=== PATIENT | female | born 1945 | race Caucasian/White ===

== ENCOUNTER → 2016-07-05 | Outpatient (CLI) | payer MEDICARE ==
--- NOTE | 2016-07-05 13:30 | RAD ---
DATE: 07/05/2016 EXAM: DIGITAL SCREEN BILAT W/CAD HISTORY: Routine screening COMPARISON: 07/03/2015, 06/25/2013, 06/08/2010 This study was interpreted with the benefit of Computerized Aided Detection (CAD). FINDINGS: There are scattered fibroglandular densities in the breasts. A small opacity present laterally in the right breast in the craniocaudad projection has been present on multiple previous studies dating back to 2010. No new or enlarging breast densities are seen. Benign type calcification is present. No suspicious microcalcifications have developed. IMPRESSION: Stable mammograms without evidence of malignancy. BI-RADS CATEGORY: 2 BENIGN FINDING(S) RECOMMENDED FOLLOW-UP: 12M 12 MONTH FOLLOW-UP PQRS compliance statement: Patient information was entered into a reminder system with a target due date for the next mammogram. Mammography is a sensitive method for finding small breast cancers, but it does not detect them all and is not a substitute for careful clinical examination. A negative mammogram does not negate a clinically suspicious finding and should not result in delay in biopsying a clinically suspicious abnormality. "Our facility is accredited by the [employer] Mammography Program."
== END | disposition home or self-care (01) ==
LOC: MAMMO 07:55
PROVIDERS: ATTEND Internal Medicine
DX: Z12.31 Encounter for screening mammogram for malignant neoplasm of breast (principal)
CPT/HCPCS: G0202; 77067

== ENCOUNTER 2016-07-10 12:41 | Inpatient (IN) | payer MEDICARE ==
[2016-07-10] VITALS (9 sets, daily range): BP systolic 103–126; BP diastolic 57–74
[~2016-07-10] VITALS: Ht 167.6 cm; Wt 79.1 kg
[2016-07-10 13:02] LABS: BASO # 0.1 x10^3/uL (0.0-0.2); BASO % 1 % (0-3); EOS % 10 % (0-3); HEMOGLOBIN 14.9 g/dL (12.0-15.5); LYMPH # 2.3 x10^3/uL (1.0-4.8); LYMPH % 30 % (24-48); MEAN CORPUSCULAR HEMOGLOBIN 30 pg (25-35); MEAN CORPUSCULAR HGB CONC 32 g/dL (31-37); MEAN CORPUSCULAR VOLUME 92 fL (79-100); MONO % 13 % (0-9); NEUT % 46 % (31-73); PLATELET COUNT 172 x10^3/uL (140-400); RED BLOOD COUNT 4.98 x10^6/uL (3.50-5.40); RED CELL DISTRIBUTION WIDTH 13.8 % (11.5-14.5); WHITE BLOOD COUNT 7.7 x10^3/uL (4.0-11.0)
--- NOTE | 2016-07-10 13:10 | PHYS DOC ---
Past Medical History Past Medical History: Hypothyroid Past Surgical History: No Surgical History Alcohol Use: None Drug Use: None Adult General Chief Complaint Chief Complaint: RAPID HEART RATE HPI HPI 70-year-old female presenting to the emergency department today with palpitations that started around 7:00 this morning. She has a history of hypothyroidism. She denies any chest pain or shortness of breath. Location chest. Duration intermittent. No alleviating factors present. She reports a remote history of more than 5 years ago however otherwise has not felt any symptoms over the past week. She denies a history of A. fib. Review of systems is negative for chest pain shortness of breath abdominal pain nausea vomiting fevers or chills. All other review of systems is negative unless otherwise noted in history of present illness. Review of Systems Review of Systems SEE ABOVE. Current Medications Current Medications Allergies Allergies Allergies Coded Allergies Type Severity Reaction Last Updated Verified neomycin Allergy Unknown Rash 07/10/16 Yes Physical Exam Physical Exam Constitutional: Well developed, well nourished, no acute distress, non-toxic appearance. HENT: Normocephalic, atraumatic, bilateral external ears normal, oropharynx moist, no oral exudates, nose normal. Eyes: PERRLA, EOMI, conjunctiva normal, no discharge. [] Neck: Normal range of motion, no tenderness, supple, no stridor. Cardiovascular: Tachycardic rate with an irregular rhythm. No murmur. Lungs & Thorax: Bilateral breath sounds clear to auscultation [] Abdomen: Bowel sounds normal, soft, no tenderness, no masses, no pulsatile masses. Skin: Warm, dry, no erythema, no rash. [] Back: No tenderness, no CVA tenderness. Extremities: No tenderness, no cyanosis, no clubbing, ROM intact, no edema. [] Neurologic: Alert and oriented X 3, normal motor function, normal sensory function, no focal deficits noted. Psychologic: Affect normal, judgement normal, mood normal. Current Patient Data Vital Signs Vital Signs Date Time Temp Pulse Resp B/P Pulse Ox O2 Delivery O2 Flow Rate FiO2 07/10/16 13:06 120 20 173/103 99 Room Air 07/10/16 12:54 97.7 97.7 Lab Values Laboratory Tests Test 07/10/16 12:55 White Blood Count 7.7x10^3/uL (4.0-11.0) Red Blood Count 4.98x10^6/uL (3.50-5.40) Hemoglobin 14.9g/dL (12.0-15.5) Hematocrit 46.0% (36.0-47.0) Mean Corpuscular Volume 92fL (79-100) Mean Corpuscular Hemoglobin 30pg (25-35) Mean Corpuscular Hemoglobin Concent 32g/dL (31-37) Red Cell Distribution Width 13.8% (11.5-14.5) Platelet Count 172x10^3/uL (140-400) Neutrophils (%) (Auto) 46% (31-73) Lymphocytes (%) (Auto) 30% (24-48) Monocytes (%) (Auto) 13% (0-9) H Eosinophils (%) (Auto) 10% (0-3) H Basophils (%) (Auto) 1% (0-3) Neutrophils # (Auto) 3.5x10^3uL (1.8-7.7) Lymphocytes # (Auto) 2.3x10^3/uL (1.0-4.8) Monocytes # (Auto) 1.0x10^3/uL (0.0-1.1) Eosinophils # (Auto) 0.8x10^3/uL (0.0-0.7) H Basophils # (Auto) 0.1x10^3/uL (0.0-0.2) Sodium Level 141mmol/L (136-145) Potassium Level 3.7mmol/L (3.5-5.1) Chloride Level 103mmol/L (98-107) Carbon Dioxide Level 31mmol/L (21-32) Anion Gap 7 (6-14) Blood Urea Nitrogen 17mg/dL (7-20) Creatinine 1.0mg/dL (0.6-1.0) Estimated GFR (Cockcroft-Gault) 54.7 Glucose Level 117mg/dL (70-99) H Calcium Level 9.1mg/dL (8.5-10.1) Total Bilirubin 0.3mg/dL (0.2-1.0) Direct Bilirubin 0.1mg/dL (0.0-0.2) Aspartate Amino Transferase (AST) 24U/L (15-37) Alanine Aminotransferase (ALT) 30U/L (14-59) Alkaline Phosphatase 80U/L (46-116) Troponin I Quantitative < 0.017ng/mL (0.000-0.055) DC-Rjp-N-Type Natriuretic Peptide 311pg/mL (0-124) H Total Protein 8.3g/dL (6.4-8.2) H Albumin 3.4g/dL (3.4-5.0) Lipase 97U/L (73-393) Thyroid Stimulating Hormone (TSH) 1.633uIU/mL (0.358-3.74) Laboratory Tests 07/10/16 12:55 Laboratory Tests 07/10/16 12:55 EKG EKG [] Radiology/Procedures Radiology/Procedures Chest x-ray reviewed by myself shows no obvious infiltrate or pneumothorax present. No obvious acute cardiopulmonary process present.[] Course & Med Decision Making Course & Med Decision Making Pertinent Labs and Imaging studies reviewed. (See chart for details) [] 70-year-old female presenting to the emergency department today with rotations. Initial EKG shows A. fib with RVR. Initial triage vital signs shows a pulse in the 160s. Blood pressure 170/100 approximately. The patient was given IV diltiazem bolus and drip. Otherwise unremarkable exam. Blood work obtained. On reevaluation the patient's heart rate had improved. She was admitted to our cardiovascular care unit for further evaluation workup and care. Cardiology consultation placed. Dragon Disclaimer Dragon Disclaimer This electronic medical record was generated, in whole or in part, using a voice recognition dictation system. Departure Departure Impression: Primary Impression: Atrial fibrillation with RVR Disposition: ADMITTED INPATIENT Admitting Physician: Yousuf Freeman Condition: IMPROVED Referrals: SERENA DENTON Jr, MD (PCP) Critical Care Time Critical care time was 40 minutes exclusive of procedures. Time was spent evaluating pt, ordering and reviewing labs and chest xray, reevaluating, discussing with the admitting provider and documenting. DUYEN HERNANDEZ MD Jul 10, 2016 13:10
[2016-07-10] MEDS ORDERED: DILTIAZEM 125 MG in IV DEXTROSE 5% 100 ML IV PRN (13:15)
[2016-07-10] MEDS ORDERED: ONDANSETRON PF 4 MG/2 ML VIAL. IV PRN ×2 (13:15→15:15)
[2016-07-10] MEDS ORDERED: DILTIAZEM IV PUSH 25 MG/5 ML VIAL. IVP ONE ×2 (13:15→14:00)
[2016-07-10] MEDS ORDERED: MORPHINE SULFATE 2 MG/ML DISP.SYRIN. IV PRN (13:15)
--- NOTE | 2016-07-10 13:19 | RAD ---
Indication chest pain. A single view of the chest was obtained. No prior imaging of the chest is available. The heart and pulmonary vessels appear normal. The lungs are clear. There is no pleural fluid or pneumothorax. Bony structures appear grossly intact. IMPRESSION: No acute or focal process is seen in the chest
[2016-07-10 13:22] LABS: CALCIUM 9.1 mg/dL (8.5-10.1); GFR 54.7; POTASSIUM 3.7 mmol/L (3.5-5.1)
--- NOTE | 2016-07-10 13:22 | EKG ---
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
[2016-07-10 13:27] LABS: ALBUMIN 3.4 g/dL (3.4-5.0); DIRECT BILIRUBIN 0.1 mg/dL (0.0-0.2); TOTAL BILIRUBIN 0.3 mg/dL (0.2-1.0); TOTAL PROTEIN 8.3 g/dL (6.4-8.2)
--- NOTE | 2016-07-10 13:40 | ACF ---
Admission Forms Criteria ATRIAL FIBRILLATION Clinical Indications for Admission to Inpatient Care (Place 'X' for any and all applicable criteria): Admission indicated for ANY ONE of the following(1)(2)(3)(4)(5) : [ ]I. Myocardial ischemia [ ]II. Dyspnea or hypoxemia [ ]III. Hemodynamic instability [ ]IV. Heart failure (e.g., pulmonary edema) (7) [ ]V. New-onset (less than 48 hours) atrial fibrillation with high risk for causing complications secondary to comorbidities (eg, symptomatic heart failure ) [ ]. Altered mental status [ ]VII. Syncope [ ]VIII. Patient has implantable cardioverter defibrillator that has fired more than once within past 24hr or needs immediate adjustment of settings that cannot be done other than in inpatient setting. (8) [ ]IX. Suspected accessory pathway (e.g., Megyh-Cwvsefyst-Mnpxj syndrome) on ECG [ ]X. Recent systemic thromboembolism (eg, stroke) [ ]XI. Medication toxicity (e.g., digitalis) causing arrhythmia(9) [ ]XII. Underlying medical condition that necessitates inpatient care (e.g., thyrotoxicosis, pneumonia) (10) [ ]XIII. Continuous ECG monitoring is required for condition causing arrhythmia (e.g., severe hyperkalemia, hypokalemia, acid-base disturbance).(11)(12)(13) [ ]XIV. Initiation of antiarrhythmic drug therapy is needed in patient at high risk of adverse effects as indicated by ANY ONE of the following: [ ]a) Significant structural heart disease (e.g., reduced ejection fraction, congenital heart disease, valvular heart disease) [ ]b) Prolonged QT interval [ ]c) Underlying sinus node or atrioventricular conduction disturbances [ ]d) Need for treatment with antiarrhythmic drugs that have significant proarrhythmic potential (e.g., dofetilide, sotalol, procainamide) [ ]e) Patient whose sinus rhythm has never been observed on ECG [ ]XV. Intolerable symptoms despite optimal outpatient treatment [ ]XVI. Elective or urgent cardioversion that cannot be performed on outpatient basis or during observation care. [A] (Use also Atrial Fibrillation: Observation Care ) as appropriate.(14) [ ]XVII.Contraindications and/or Inappropriate clinical situations for Observational Care in patients with Atrial Fibrillation, when ANY ONE of the following is required: [ ]a) Patient with High risk of cardiac embolism (e.g, patients with previous cardiac embolism, LVEF < 40%, age >75 and patients with prosthetic valve) 18 [ ]b) Patient with Moderate risk including DM patient, CAD and patient aged 65-75 18 [ ]c) Patient with any change in cardiac biomarker especially troponin should be managed as high risk in an inpatient setting 19 [ ]d) Physician judgement irrespective of ECG and other diagnostic findings 20 [X]XVIII.General contraindications and/or Inappropriate clinical situations for Observational Care in patients with Atrial Fibrillation, when ANY ONE of the following is required: [X]a) Prediction of prolongation of LOS based on ANY ONE of the following may be considered as a contraindication for observational care 2, 3, 4, 5, 6, 7, 8, 9, 10, 11 [X]i) Age > 65 yrs. [ ]ii) Patient arriving by ambulance [ ]iii) Patient with high acuity [X]iv) Patient requiring vital sign monitoring [ ]v) Patient on IV medication [ ]b) Systolic blood pressures 180mmHg 3,12 [ ]c) Patient with altered mental status including delirium and other alteration of consciousness3 [ ]d) Patient whose discharge disposition will be to a half-way home or rehabilitation home should not be managed in Emergency Department Observation Unit. CMS rule requires 3 days hospital stay before such placement.3,13 [ ]e) Patient with failure to thrive due to broad array of etiologies 3,16,17 [ ]f) Inability to ambulate 3,14 Extended stay beyond goal length of stay may be needed for (1)(25)(26): [ ]a) Unstable comorbidities [ ]b) Persistently uncontrolled atrial fibrillation or other arrhythmias [ ]c) Acute thromboembolic event (e.g., stroke, limb ischemia) [ ]d) Need for inpatient attainment of full anticoagulation The original [employer] content created by [employer] has been revised. The portions of the content which have been revised are identified through the use of italic text or in bold, and [facility] has neither reviewed nor approved the modified material. All other unmodified content is copyright [employer]. Please see references footnoted in the original [employer] edition 2016 Admission Criteria Met?: Yes DOMINIC POWELL Jul 10, 2016 13:40
[2016-07-10] MEDS ORDERED: LEVO100T5 PO (13:53)
[2016-07-10] MEDS ORDERED: ASPI-482 PO (13:53)
--- NOTE | 2016-07-10 15:14 | PDOC1 ---
History and Physical Date of Admission Date of Admission 07/10/16 Identification/Chief Complaint Chief Complaint palpittation Problems: Source Source: Chart review, Patient History of Present Illness History of Present Illness HPI HPI 70-year-old female with hypothyroidism, came to the emergency department today with for palpitation today. Pt has had similar palpitation in the past , but never told her PCP or seen a card. Today 7am, she started to have palpitation, constant, cannot tell if it is irregular or now, with mild dizziness, no sob , or chest pain. She was found rapid afib in ER, hr 170s, responded well to cardizem, now on cardizme drip at 10, still HR 110-140s. likes drink coffee. Past Medical History Past Medical History hypothyroidism Past Surgical History Past Surgical History: No pertinent history Social History Smoke: No ALCOHOL: none Drugs: None Current Problem List Problem List Problems Medical Problems: (1) Atrial fibrillation with RVR Status: Acute (2) Atrial fibrillation with RVR Status: Acute (3) Respiratory failure Status: Acute Current Medications Current Medications Current Medications Medications (Trade) Dose Ordered Sig/Cornelio Start Time Stop Time Status Last Admin Dose Admin Diltiazem HCl (Cardizem) 20 mg 1X ONCE 07/10/16 14:00 07/10/16 14:01 DC 07/10/16 13:51 20 MG Diltiazem HCl/ Dextrose (Cardizem) 125 ml @ 0 mls/hr CONT PRN 07/10/16 13:15 07/10/16 13:17 5 MLS/HR Morphine Sulfate 2 mg PRN Q2HR PRN 07/10/16 13:15 07/11/16 13:14 Ondansetron HCl (Zofran) 4 mg PRN Q8HRS PRN 07/10/16 13:15 07/11/16 13:14 Allergies Allergies Allergies Coded Allergies Type Severity Reaction Last Updated Verified neomycin Allergy Unknown Rash 07/10/16 Yes ROS Review of System CONSTITUTIONAL: No fever or chills EYES: No recent changes SKIN: No rash or itching CARDIOVASCULAR: No chest pain, syncope, palpitations, or edema RESPIRATORY: No SOB or cough GASTROINTESTINAL: No nausea, vomiting or abdominal pain NEUROLOGICAL: No headaches or weakness ENDOCRINE: No cold or heat intolerance GENITOURINARY: No urgency or frequency of urination MUSCULOSKELETAL: No back pain or joint pain LYMPHATICS: No enlarged lymph nodes PSYCHIATRIC: No anxiety or depression Physical Exam Physical Exam GEN.: No apparent distress. Alert and oriented. HEENT: Head is normocephalic, atraumatic NECK: Supple. LUNGS: Clear to auscultation. HEART: rapid irregular HR. no murmurs ABDOMEN: Soft, nontender. Positive bowel sounds. EXTREMITIES: Without any cyanosis. NEUROLOGIC: Normal speech, normal tone PSYCHIATRIC: Normal affect, normal mood. SKIN: No ulcerations Vitals Vitals Vital Signs Date Time Temp Pulse Resp B/P Pulse Ox O2 Delivery O2 Flow Rate FiO2 07/10/16 13:58 100 18 117/63 99 Room Air 07/10/16 12:54 97.7 97.7 Labs Labs Laboratory Tests Test 07/10/16 12:55 White Blood Count 7.7x10^3/uL (4.0-11.0) Red Blood Count 4.98x10^6/uL (3.50-5.40) Hemoglobin 14.9g/dL (12.0-15.5) Hematocrit 46.0% (36.0-47.0) Mean Corpuscular Volume 92fL (79-100) Mean Corpuscular Hemoglobin 30pg (25-35) Mean Corpuscular Hemoglobin Concent 32g/dL (31-37) Red Cell Distribution Width 13.8% (11.5-14.5) Platelet Count 172x10^3/uL (140-400) Neutrophils (%) (Auto) 46% (31-73) Lymphocytes (%) (Auto) 30% (24-48) Monocytes (%) (Auto) 13% (0-9) Eosinophils (%) (Auto) 10% (0-3) Basophils (%) (Auto) 1% (0-3) Neutrophils # (Auto) 3.5x10^3uL (1.8-7.7) Lymphocytes # (Auto) 2.3x10^3/uL (1.0-4.8) Monocytes # (Auto) 1.0x10^3/uL (0.0-1.1) Eosinophils # (Auto) 0.8x10^3/uL (0.0-0.7) Basophils # (Auto) 0.1x10^3/uL (0.0-0.2) Sodium Level 141mmol/L (136-145) Potassium Level 3.7mmol/L (3.5-5.1) Chloride Level 103mmol/L (98-107) Carbon Dioxide Level 31mmol/L (21-32) Anion Gap 7 (6-14) Blood Urea Nitrogen 17mg/dL (7-20) Creatinine 1.0mg/dL (0.6-1.0) Estimated GFR (Cockcroft-Gault) 54.7 Glucose Level 117mg/dL (70-99) Calcium Level 9.1mg/dL (8.5-10.1) Total Bilirubin 0.3mg/dL (0.2-1.0) Direct Bilirubin 0.1mg/dL (0.0-0.2) Aspartate Amino Transf (AST/SGOT) 24U/L (15-37) Alanine Aminotransferase (ALT/SGPT) 30U/L (14-59) Alkaline Phosphatase 80U/L (46-116) Troponin I Quantitative < 0.017ng/mL (0.000-0.055) OW-Rna-N-Type Natriuretic Peptide 311pg/mL (0-124) Total Protein 8.3g/dL (6.4-8.2) Albumin 3.4g/dL (3.4-5.0) Lipase 97U/L (73-393) Thyroid Stimulating Hormone (TSH) 1.633uIU/mL (0.358-3.74) Laboratory Tests Test 07/10/16 12:55 White Blood Count 7.7x10^3/uL (4.0-11.0) Red Blood Count 4.98x10^6/uL (3.50-5.40) Hemoglobin 14.9g/dL (12.0-15.5) Hematocrit 46.0% (36.0-47.0) Mean Corpuscular Volume 92fL (79-100) Mean Corpuscular Hemoglobin 30pg (25-35) Mean Corpuscular Hemoglobin Concent 32g/dL (31-37) Red Cell Distribution Width 13.8% (11.5-14.5) Platelet Count 172x10^3/uL (140-400) Neutrophils (%) (Auto) 46% (31-73) Lymphocytes (%) (Auto) 30% (24-48) Monocytes (%) (Auto) 13% (0-9) Eosinophils (%) (Auto) 10% (0-3) Basophils (%) (Auto) 1% (0-3) Neutrophils # (Auto) 3.5x10^3uL (1.8-7.7) Lymphocytes # (Auto) 2.3x10^3/uL (1.0-4.8) Monocytes # (Auto) 1.0x10^3/uL (0.0-1.1) Eosinophils # (Auto) 0.8x10^3/uL (0.0-0.7) Basophils # (Auto) 0.1x10^3/uL (0.0-0.2) Sodium Level 141mmol/L (136-145) Potassium Level 3.7mmol/L (3.5-5.1) Chloride Level 103mmol/L (98-107) Carbon Dioxide Level 31mmol/L (21-32) Anion Gap 7 (6-14) Blood Urea Nitrogen 17mg/dL (7-20) Creatinine 1.0mg/dL (0.6-1.0) Estimated GFR (Cockcroft-Gault) 54.7 Glucose Level 117mg/dL (70-99) Calcium Level 9.1mg/dL (8.5-10.1) Total Bilirubin 0.3mg/dL (0.2-1.0) Direct Bilirubin 0.1mg/dL (0.0-0.2) Aspartate Amino Transf (AST/SGOT) 24U/L (15-37) Alanine Aminotransferase (ALT/SGPT) 30U/L (14-59) Alkaline Phosphatase 80U/L (46-116) Troponin I Quantitative < 0.017ng/mL (0.000-0.055) IP-Lke-I-Type Natriuretic Peptide 311pg/mL (0-124) Total Protein 8.3g/dL (6.4-8.2) Albumin 3.4g/dL (3.4-5.0) Lipase 97U/L (73-393) Thyroid Stimulating Hormone (TSH) 1.633uIU/mL (0.358-3.74) VTE Prophylaxis Ordered VTE Prophylaxis Devices: Yes VTE Pharmacological Prophylaxi: Yes Assessment/Plan Assessment/Plan 1. rapid afib, new onset 2. hypothyroidism plan: 1 .card consult 2. on cardizem ip, cont for today 3. check Echo tsh normal 4.may need AC, defer to card dvt ppx cont home meds MARIKA DIXON MD Jul 10, 2016 15:14
[2016-07-10] MEDS ORDERED: hydrALAZINE 20 MG/ML VIAL. IVP PRN (15:15)
[2016-07-10] MEDS ORDERED: ENOXAPARIN 40 MG/0.4 ML DISP.SYRIN. SQ SCH (15:15)
[2016-07-10] MEDS ORDERED: ACETAMINOPHEN 325 MG TABLET. PO PRN (15:15)
[2016-07-10] MEDS ORDERED: DIGOXIN 500 MCG/2 ML AMPUL. IV ONE (15:45)
[2016-07-10] MEDS: ASPIRIN ENTERIC COATED 81 MG TABLET.DR. PO SCH (16:00)
[2016-07-10] MEDS: LEVOTHYROXINE 100 MCG TABLET PO SCH (16:00)
[2016-07-11] VITALS (8 sets, daily range): BP systolic 100–134; BP diastolic 50–72
[2016-07-11 05:26] LABS: BASO % 0 % (0-3); EOS % 9 % (0-3); HEMATOCRIT 41.5 % (36.0-47.0); HEMOGLOBIN 13.5 g/dL (12.0-15.5); LYMPH # 2.3 x10^3/uL (1.0-4.8); LYMPH % 37 % (24-48); MEAN CORPUSCULAR HEMOGLOBIN 30 pg (25-35); MEAN CORPUSCULAR HGB CONC 33 g/dL (31-37); MEAN CORPUSCULAR VOLUME 92 fL (79-100); MONO % 12 % (0-9); NEUT % 42 % (31-73); PLATELET COUNT 143 x10^3/uL (140-400); RED CELL DISTRIBUTION WIDTH 13.7 % (11.5-14.5); WHITE BLOOD COUNT 6.4 x10^3/uL (4.0-11.0)
[2016-07-11 05:33] LABS: CALCIUM 8.9 mg/dL (8.5-10.1); GFR 54.7; POTASSIUM 4.1 mmol/L (3.5-5.1)
[2016-07-11] MEDS: LEVOTHYROXINE 100 MCG TABLET PO SCH (06:12)
[2016-07-11] MEDS: ASPIRIN ENTERIC COATED 81 MG TABLET.DR. PO SCH (07:52)
--- NOTE | 2016-07-11 10:06 | PDOC2 ---
CARDIOLOGY CONSULT NOTE CHEIF COMPLAINT: Palpitations Problems: HPI: 70 y.o woman presenting with afib with rvr. She has had palpitations over the last year about 2 or three times. This time the palpitations lasted several hours and prompted ED visit due to light headedness. Noted to be in afib with RVR and started on Cardizem. She was also given IV dig on the floor due to rapid afib. Converted to SR. Has been on low dose diltiazem overnight. Denies any chest pain. At baseline has normal functional capacity. No dyspnea. No syncope in the past. PMHX: Hypothyroidism SOCHX: No alcohol, tobacco or illicit drug use. FAMHX: father - pacemaker. CURRENT MEDS: Current Medications Medications (Trade) Dose Ordered Sig/Cornelio Start Time Stop Time Status Last Admin Dose Admin Acetaminophen (Tylenol) 650 mg PRN Q6HRS PRN 07/10/16 15:15 Aspirin (Ecotrin) 81 mg DAILY08 07/10/16 16:00 07/11/16 07:52 81 MG Digoxin (Lanoxin) 500 mcg 1X ONCE 07/10/16 15:45 07/10/16 15:48 DC 07/10/16 16:12 500 MCG Diltiazem HCl (Cardizem) 20 mg 1X ONCE 07/10/16 14:00 07/10/16 14:01 DC 07/10/16 13:51 20 MG Diltiazem HCl/ Dextrose (Cardizem) 125 ml @ 0 mls/hr CONT PRN 07/10/16 13:15 07/10/16 13:17 5 MLS/HR Enoxaparin Sodium (Lovenox 40mg Syringe) 40 mg Q24H 07/10/16 15:15 Hydralazine HCl (Apresoline) 10 mg PRN Q4HRS PRN 07/10/16 15:15 Levothyroxine Sodium (Synthroid) 100 mcg DAILYAC 07/10/16 16:00 07/11/16 06:12 100 MCG Morphine Sulfate 2 mg PRN Q2HR PRN 07/10/16 13:15 07/11/16 13:14 Ondansetron HCl (Zofran) 4 mg PRN Q6HRS PRN 07/10/16 15:15 ALLERGIES: Allergies Coded Allergies Type Severity Reaction Last Updated Verified neomycin Allergy Unknown Rash 07/10/16 Yes ROS: negative for 01/29 systems reviewed unless otherwise noted above in HPI> PHYSICAL EXAM: Vital Signs: Vital Signs Date Time Temp Pulse Resp B/P Pulse Ox O2 Delivery O2 Flow Rate FiO2 07/11/16 07:57 Room Air 07/11/16 07:00 98.4 61 18 114/64 92 98.4 I & O Intake and Output 07/11/16 07:00 Intake Total 540 ml Output Total 1775 ml Balance -1235 ml Intake Oral 540 ml Output Urine Total 1775 ml Physical Exam: Gen: A/o x 3. NAD CVS; RRR, no m/r/g PULM: CTAB ABD: Soft. NT/ND +BS EXT: No edema NEURO:No focal deficits. PSYCH: Normal affect, mood DIAGNOSTIC TESTING: Trop neg x 2. Lab Laboratory Tests Test 07/10/16 12:55 07/11/16 01:00 07/11/16 01:30 White Blood Count 7.7x10^3/uL (4.0-11.0) 6.4x10^3/uL (4.0-11.0) Red Blood Count 4.98x10^6/uL (3.50-5.40) 4.50x10^6/uL (3.50-5.40) Hemoglobin 14.9g/dL (12.0-15.5) 13.5g/dL (12.0-15.5) Hematocrit 46.0% (36.0-47.0) 41.5% (36.0-47.0) Mean Corpuscular Volume 92fL (79-100) 92fL (79-100) Mean Corpuscular Hemoglobin 30pg (25-35) 30pg (25-35) Mean Corpuscular Hemoglobin Concent 32g/dL (31-37) 33g/dL (31-37) Red Cell Distribution Width 13.8% (11.5-14.5) 13.7% (11.5-14.5) Platelet Count 172x10^3/uL (140-400) 143x10^3/uL (140-400) Neutrophils (%) (Auto) 46% (31-73) 42% (31-73) Lymphocytes (%) (Auto) 30% (24-48) 37% (24-48) Monocytes (%) (Auto) 13% (0-9) H 12% (0-9) H Eosinophils (%) (Auto) 10% (0-3) H 9% (0-3) H Basophils (%) (Auto) 1% (0-3) 0% (0-3) Neutrophils # (Auto) 3.5x10^3uL (1.8-7.7) 2.7x10^3uL (1.8-7.7) Lymphocytes # (Auto) 2.3x10^3/uL (1.0-4.8) 2.3x10^3/uL (1.0-4.8) Monocytes # (Auto) 1.0x10^3/uL (0.0-1.1) 0.8x10^3/uL (0.0-1.1) Eosinophils # (Auto) 0.8x10^3/uL (0.0-0.7) H 0.6x10^3/uL (0.0-0.7) Basophils # (Auto) 0.1x10^3/uL (0.0-0.2) 0.0x10^3/uL (0.0-0.2) Sodium Level 141mmol/L (136-145) 143mmol/L (136-145) Potassium Level 3.7mmol/L (3.5-5.1) 4.1mmol/L (3.5-5.1) Chloride Level 103mmol/L (98-107) 107mmol/L (98-107) Carbon Dioxide Level 31mmol/L (21-32) 27mmol/L (21-32) Anion Gap 7 (6-14) 9 (6-14) Blood Urea Nitrogen 17mg/dL (7-20) 17mg/dL (7-20) Creatinine 1.0mg/dL (0.6-1.0) 1.0mg/dL (0.6-1.0) Estimated GFR (Cockcroft-Gault) 54.7 54.7 Glucose Level 117mg/dL (70-99) H 97mg/dL (70-99) Calcium Level 9.1mg/dL (8.5-10.1) 8.9mg/dL (8.5-10.1) Total Bilirubin 0.3mg/dL (0.2-1.0) Direct Bilirubin 0.1mg/dL (0.0-0.2) Aspartate Amino Transf (AST/SGOT) 24U/L (15-37) Alkaline Phosphatase 80U/L (46-116) Total Protein 8.3g/dL (6.4-8.2) H Albumin 3.4g/dL (3.4-5.0) Lipase 97U/L (73-393) Thyroid Stimulating Hormone (TSH) 1.633uIU/mL (0.358-3.74) Cholesterol Level 181mg/dL (0-200) LDL Cholesterol, Calculated 124mg/dL (0-100) H VLDL Cholesterol, Calculated 12mg/dL (0-40) Cholesterol/HDL Ratio 4.0 ASSESSMENT: 1. Paroxysmal afib with RVR 2. Hypothyroidism PLAN: 1. Will start Metoprolol 25mg bid 2. Check echo/stress to allow us to use various meds. 3. No anticoagulation 4. Will mail monitor to house Discussed extensively with patient and daughter over phone about pathophysiology , possibility of pacemaker in the future if tachybrady occurs (pt. had intermittent pauses on diltiazem yesterday) and anticoagulation. Given her short episode of afib, will continue ASA 325 daily and defer anticoagulation. f/u with us in the office in 4 weeks. YAS HEMPHILL MD Jul 11, 2016 10:06
[2016-07-11] MEDS ORDERED: REGADENOSON 0.4 MG/5 ML DISP.SYRIN. IV ONE (10:30)
[2016-07-11] MEDS ORDERED: METOPROLOL TART IMMED RELEASE 25 MG TABLET PO SCH (11:00)
--- NOTE | 2016-07-11 11:42 | PDOC3 ---
Discharge Summary Visit Information Date of Admission: Jul 10, 2016 Date of Discharge: Jul 11, 2016 Admitting Diagnosis Comment: 1. rapid afib, new onset 2. hypothyroidism Final Diagnosis Problems Medical Problems: (1) Atrial fibrillation with RVR Status: Acute (2) Atrial fibrillation with RVR Status: Acute (3) Respiratory failure Status: Acute Brief Hospital Course Allergies Allergies Coded Allergies Type Severity Reaction Last Updated Verified neomycin Allergy Unknown Rash 07/10/16 Yes Vital Signs Vital Signs Date Time Temp Pulse Resp B/P Pulse Ox O2 Delivery O2 Flow Rate FiO2 07/11/16 07:57 Room Air 07/11/16 07:00 98.4 61 18 114/64 92 98.4 Lab Results Laboratory Tests Test 07/10/16 12:55 07/10/16 19:20 07/11/16 01:00 07/11/16 01:30 White Blood Count 7.7x10^3/uL (4.0-11.0) 6.4x10^3/uL (4.0-11.0) Red Blood Count 4.98x10^6/uL (3.50-5.40) 4.50x10^6/uL (3.50-5.40) Hemoglobin 14.9g/dL (12.0-15.5) 13.5g/dL (12.0-15.5) Hematocrit 46.0% (36.0-47.0) 41.5% (36.0-47.0) Mean Corpuscular Volume 92fL (79-100) 92fL (79-100) Mean Corpuscular Hemoglobin 30pg (25-35) 30pg (25-35) Mean Corpuscular Hemoglobin Concent 32g/dL (31-37) 33g/dL (31-37) Red Cell Distribution Width 13.8% (11.5-14.5) 13.7% (11.5-14.5) Platelet Count 172x10^3/uL (140-400) 143x10^3/uL (140-400) Neutrophils (%) (Auto) 46% (31-73) 42% (31-73) Lymphocytes (%) (Auto) 30% (24-48) 37% (24-48) Monocytes (%) (Auto) 13% (0-9) 12% (0-9) Eosinophils (%) (Auto) 10% (0-3) 9% (0-3) Basophils (%) (Auto) 1% (0-3) 0% (0-3) Neutrophils # (Auto) 3.5x10^3uL (1.8-7.7) 2.7x10^3uL (1.8-7.7) Lymphocytes # (Auto) 2.3x10^3/uL (1.0-4.8) 2.3x10^3/uL (1.0-4.8) Monocytes # (Auto) 1.0x10^3/uL (0.0-1.1) 0.8x10^3/uL (0.0-1.1) Eosinophils # (Auto) 0.8x10^3/uL (0.0-0.7) 0.6x10^3/uL (0.0-0.7) Basophils # (Auto) 0.1x10^3/uL (0.0-0.2) 0.0x10^3/uL (0.0-0.2) Sodium Level 141mmol/L (136-145) 143mmol/L (136-145) Potassium Level 3.7mmol/L (3.5-5.1) 4.1mmol/L (3.5-5.1) Chloride Level 103mmol/L (98-107) 107mmol/L (98-107) Carbon Dioxide Level 31mmol/L (21-32) 27mmol/L (21-32) Anion Gap 7 (6-14) 9 (6-14) Blood Urea Nitrogen 17mg/dL (7-20) 17mg/dL (7-20) Creatinine 1.0mg/dL (0.6-1.0) 1.0mg/dL (0.6-1.0) Estimated GFR (Cockcroft-Gault) 54.7 54.7 Glucose Level 117mg/dL (70-99) 97mg/dL (70-99) Calcium Level 9.1mg/dL (8.5-10.1) 8.9mg/dL (8.5-10.1) Total Bilirubin 0.3mg/dL (0.2-1.0) Direct Bilirubin 0.1mg/dL (0.0-0.2) Aspartate Amino Transf (AST/SGOT) 24U/L (15-37) Alanine Aminotransferase (ALT/SGPT) 30U/L (14-59) Alkaline Phosphatase 80U/L (46-116) Troponin I Quantitative < 0.017ng/mL (0.000-0.055) < 0.017ng/mL (0.000-0.055) < 0.017ng/mL (0.000-0.055) IG-Djy-A-Type Natriuretic Peptide 311pg/mL (0-124) Total Protein 8.3g/dL (6.4-8.2) Albumin 3.4g/dL (3.4-5.0) Lipase 97U/L (73-393) Thyroid Stimulating Hormone (TSH) 1.633uIU/mL (0.358-3.74) Triglycerides Level 58mg/dL (0-150) Cholesterol Level 181mg/dL (0-200) LDL Cholesterol, Calculated 124mg/dL (0-100) VLDL Cholesterol, Calculated 12mg/dL (0-40) HDL Cholesterol 45mg/dL (40-60) Cholesterol/HDL Ratio 4.0 Laboratory Tests Test 07/10/16 12:55 07/10/16 19:20 07/11/16 01:00 07/11/16 01:30 White Blood Count 7.7x10^3/uL (4.0-11.0) 6.4x10^3/uL (4.0-11.0) Red Blood Count 4.98x10^6/uL (3.50-5.40) 4.50x10^6/uL (3.50-5.40) Hemoglobin 14.9g/dL (12.0-15.5) 13.5g/dL (12.0-15.5) Hematocrit 46.0% (36.0-47.0) 41.5% (36.0-47.0) Mean Corpuscular Volume 92fL (79-100) 92fL (79-100) Mean Corpuscular Hemoglobin 30pg (25-35) 30pg (25-35) Mean Corpuscular Hemoglobin Concent 32g/dL (31-37) 33g/dL (31-37) Red Cell Distribution Width 13.8% (11.5-14.5) 13.7% (11.5-14.5) Platelet Count 172x10^3/uL (140-400) 143x10^3/uL (140-400) Neutrophils (%) (Auto) 46% (31-73) 42% (31-73) Lymphocytes (%) (Auto) 30% (24-48) 37% (24-48) Monocytes (%) (Auto) 13% (0-9) 12% (0-9) Eosinophils (%) (Auto) 10% (0-3) 9% (0-3) Basophils (%) (Auto) 1% (0-3) 0% (0-3) Neutrophils # (Auto) 3.5x10^3uL (1.8-7.7) 2.7x10^3uL (1.8-7.7) Lymphocytes # (Auto) 2.3x10^3/uL (1.0-4.8) 2.3x10^3/uL (1.0-4.8) Monocytes # (Auto) 1.0x10^3/uL (0.0-1.1) 0.8x10^3/uL (0.0-1.1) Eosinophils # (Auto) 0.8x10^3/uL (0.0-0.7) 0.6x10^3/uL (0.0-0.7) Basophils # (Auto) 0.1x10^3/uL (0.0-0.2) 0.0x10^3/uL (0.0-0.2) Sodium Level 141mmol/L (136-145) 143mmol/L (136-145) Potassium Level 3.7mmol/L (3.5-5.1) 4.1mmol/L (3.5-5.1) Chloride Level 103mmol/L (98-107) 107mmol/L (98-107) Carbon Dioxide Level 31mmol/L (21-32) 27mmol/L (21-32) Anion Gap 7 (6-14) 9 (6-14) Blood Urea Nitrogen 17mg/dL (7-20) 17mg/dL (7-20) Creatinine 1.0mg/dL (0.6-1.0) 1.0mg/dL (0.6-1.0) Estimated GFR (Cockcroft-Gault) 54.7 54.7 Glucose Level 117mg/dL (70-99) 97mg/dL (70-99) Calcium Level 9.1mg/dL (8.5-10.1) 8.9mg/dL (8.5-10.1) Total Bilirubin 0.3mg/dL (0.2-1.0) Direct Bilirubin 0.1mg/dL (0.0-0.2) Aspartate Amino Transf (AST/SGOT) 24U/L (15-37) Alanine Aminotransferase (ALT/SGPT) 30U/L (14-59) Alkaline Phosphatase 80U/L (46-116) Troponin I Quantitative < 0.017ng/mL (0.000-0.055) < 0.017ng/mL (0.000-0.055) < 0.017ng/mL (0.000-0.055) UP-Hvm-K-Type Natriuretic Peptide 311pg/mL (0-124) Total Protein 8.3g/dL (6.4-8.2) Albumin 3.4g/dL (3.4-5.0) Lipase 97U/L (73-393) Thyroid Stimulating Hormone (TSH) 1.633uIU/mL (0.358-3.74) Triglycerides Level 58mg/dL (0-150) Cholesterol Level 181mg/dL (0-200) LDL Cholesterol, Calculated 124mg/dL (0-100) VLDL Cholesterol, Calculated 12mg/dL (0-40) HDL Cholesterol 45mg/dL (40-60) Cholesterol/HDL Ratio 4.0 Brief Hospital Course Ms. Navarrete is a 70 old [sex] who presented with [ ]70-year-old female with hypothyroidism, came to the emergency department today with for palpitation today. Pt has had similar palpitation in the past , but never told her PCP or seen a card. Today 7am, she started to have palpitation, constant, cannot tell if it is irregular or now, with mild dizziness, no sob , or chest pain. She was found rapid afib in ER, hr 170s, responded well to cardizem, now on cardizme drip at 10, still HR 110-140s. likes drink coffee. Undergoing MPI, if neg home today, Ff up cards 4 weeks, they will mail the event /holter monitor to her TSh was normal COnsulTs: cards Proc: MPI Discharge Information Condition at Discharge: Improved, Stable Follow Up: Weeks (cards 4 weeks) Disposition/Orders: D/C to Home Scheduled Aspirin (Aspir 81) 81 MG PO DAILY (Reported) Levothyroxine Sodium (Levothyroxine Sodium) 100 MCG PO DAILYAC (Reported) EMILY CASTANEDA MD Jul 11, 2016 11:42
[2016-07-11] MEDS ORDERED: METO25TA4 PO (11:43)
--- NOTE | 2016-07-11 13:30 | RAD ---
APPROVED REPORT Test Type: Pharmacological Stress Nurse/Tech: Ac Soto RN Test Indications: Afib, Dyspnea Cardiac History: see ehr Medications: see ehr Medical History: see ehr Resting ECG: SR Resting Heart Rate: 66 bpm Resting Blood Pressure: 116/65mmHg Pretest Chest Pain: None Nurse/Tech Notes Lungs CTA, S1, S2 Consent: The procedure was explained to the patient in lay terms. Informed consent was witnessed. Win eout was entered into [employer] Exam [employer] Platform. History and Stress Test performed by Delia VailNMatthew Pharm. Details Pharmacologic stress testing was performed using 0.4mg per 5ml of regadenoson given intravenously ove r 7-10 seconds. Stress Symptoms No chest pain or symptoms. POST EXERCISE Reason for Termination: Infusion complete Max HR: 92 bpm Max Blood Pressure: 130/54mmHg Blood Pressure response to exercise: Normal blood pressure response during stress. Chest Pain: No. Arrhythmia: No. ST Change: No. INTERPRETATION Stress EKG Conclusion: No acute changes were noted. Imaging Protocol IMAGE PROTOCOL: Rest Tc-99m/stress Tc-99m 2 days Rest: Stress: Viability: Radiopharm.Tc99m Sestamibi [id number] Img Date 07/11/2016 Inj-Img [id number]. Stress Admin Site: IV - Left AntecubitalAdministrator: TITI Roberts, ARRT (R)(N) STRESS DATA End Diast. Vol.54.0mlAv. Heart Rate66.0bpm End Syst. Vol.11.0mlCO Index BSA0.0L/min Myocardial Mass99.0gEject. Cjxyfoxi08.0% Stress Rates Pk. Fill Rate3.46EDV/secLVtime Pk. Fill 236.37msec Pk. Empty Rate4.83ESV/secLVtime Pk. Cblmo437.73msec / Pk. Fill1.45EDV/sec Stress Scores Regional WT1.00Summed WT7.00 Regional WM0.00Summed WM0.00 LV Perfusion Normal myocardial perfusion at stress. Diaphragmatic attenuation artifact and gut artifact noted. Wall Motion Normal wall motion. LV Perf. Quant 17 Seg. SSS1.00 Stress Defect Extent (% LAD)5.00Rest Defect Extent (% LAD)Rev. Defect Extent (% LAD)0.00 Stress Defect Extent (% LCX) 6.30Rest Defect Extent (% LCX)Rev. Defect Extent (% LCX)0.00 Stress Defect Extent (% RCA)0.00Rest Defect Extent (% RCA)Rev. Defect Extent (% RCA)0.00 Stress Defect Extent (% JELENA)4.10Rest Defect Extent (% JELENA)Rev. Defect Extent (% JELENA)0.00 Other Information Quality:Fair Risk Assessment: Low Risk Conclusion 1. No EKG evidence of stress induced changes. 2. Normal myocardial perfusion at stress. 3. Gut artifact noted 4. Normal EF at > 80% 5. Low risk study
--- NOTE | 2016-07-11 13:37 | CARD ---
APPROVED REPORT EXAM: Two-dimensional and M-mode echocardiogram with Doppler and color Doppler. Other Information Quality : Good INDICATION Atrial Fibrillation 2D DIMENSIONS RVDd2.6 (2.9-3.5cm)Left Atrium(2D)2.3 (1.6-4.0cm) IVSd0.9 (0.7-1.1cm)Aortic Root(2D)2.9 (2.0-3.7cm) LVDd4.2 (3.9-5.9cm)LVOT Diameter2.0 (1.8-2.4cm) PWd0.9 (0.7-1.1cm)LVDs2.5 (2.5-4.0cm) FS (%) 30.0 %SV57.8 ml LVEF(%)60.0 (>50%) Aortic Valve AoV Peak Gerson.120.1cm/sAoV VTI22.6cm AO Peak GR.5.8mmHgLVOT VTI 18.96cm AO Mean GR.3mmHgAVA (VTI)2.50cm2 Mitral Valve MV E Zenontki21.8cm/sMV DECEL [id number] MV A Ovhaflsr56.8cm/sE/A Ratio0.8 MV A Blldlber40me TDI Lateral E' P. V10.81cm/sMedial E' P. V9.78cm/s E/Lateral E'5.3E/Medial E'5.8 Tricuspid Valve TR P. Pykxfmze552ps/sRAP [id number] TR Peak Gr.29nkGsZMFX90kzBa Pulmonary Vein S1 Lqouyjsi11.9cm/sS2 Fwzvrmks93.78cm/s D2 Chctnwox37.8cm/sPVa [id number] LEFT VENTRICLE The left ventricle is normal size. There is normal left ventricular wall thickness. The left ventricu lar systolic function is normal and the ejection fraction is within normal range. The Ejection Fracti on is 55-60%. There is normal LV segmental wall motion. Transmitral Doppler flow pattern is Grade I-a bnormal relaxation pattern. RIGHT VENTRICLE The right ventricle is normal size. The right ventricular systolic function is normal. ATRIA The left atrium size is normal. The right atrium size is normal. The interatrial septum is intact wit h no evidence for an atrial septal defect or patent foramen ovale as noted on 2-D or Doppler imaging. AORTIC VALVE The aortic valve is normal in structure and function. Doppler and Color Flow revealed no significant aortic regurgitation. There is no significant aortic valvular stenosis. MITRAL VALVE The mitral valve is normal in structure and function. There is no evidence of mitral valve prolapse. There is no mitral valve stenosis. Doppler and Color-flow revealed trace mitral regurgitation. TRICUSPID VALVE The tricuspid valve is normal in structure and function. Doppler and Color Flow revealed trace tricus pid regurgitation. The PA pressure was estimated at 24 mmHg. There is no tricuspid valve stenosis. PULMONIC VALVE Doppler and Color Flow revealed trace pulmonic valvular regurgitation. There is no pulmonic valvular stenosis. GREAT VESSELS The aortic root is normal in size. The ascending aorta is normal in size. The IVC is normal in size a nd collapses >50% with inspiration. PERICARDIAL EFFUSION There is no evidence of significant pericardial effusion. Critical Notification Critical Value: No <Conclusion> The left ventricular systolic function is normal and the ejection fraction is within normal range. Th e Ejection Fraction is 55-60%. There is normal LV segmental wall motion. No significant valvular disease.
== END 2016-07-11 14:25 | disposition home or self-care (01) | DRG 310 ==
LOC: ER 12:41 → 2 NORTH 13:08
PROVIDERS: ADMIT Internal Medicine; ATTEND Internal Medicine
DX: I48.0 Paroxysmal atrial fibrillation (principal); E03.9 Hypothyroidism, unspecified; Z88.1 Allergy status to other antibiotic agents
CPT/HCPCS: 36415; 71010; 78452; 80048; 80061; 80076; 83690; 83880; 84443; 84484; 85027; 93005; 93017; 93306; 96365; 96374; 96375; A9500; J1160; J2785; J3490; 99285-25

== ENCOUNTER → 2017-07-06 | Outpatient (CLI) | payer MEDICARE | END | disposition home or self-care (01) | LOC: MAMMO 08:48 | DX: Z12.31 Encounter for screening mammogram for malignant neoplasm of breast (principal) | CPT/HCPCS: 77063; 77067 ==

== ENCOUNTER → 2018-07-10 | Outpatient (CLI) | payer MEDICARE ==
[2016-07-11 12:00] VITALS: BP 134/72
[~2018-07-10] MED LIST: ASPI-482 PO; LEVO100T5 PO; METO25TA4 PO
--- NOTE | 2018-07-10 12:42 | RAD ---
DATE: 07/10/2018 EXAM: MAMMO AGUILAR SCREENING BILATERAL HISTORY: Routine screening COMPARISON: 07/06/2017 This study was interpreted with the benefit of Computerized Aided Detection (CAD). Breast Density: SCATTERED The breast parenchyma shows scattered fibroglandular densities. Breast parenchyma level B. FINDINGS: 2-D and 3-D tomosynthesis imaging was performed in CC and MLO projections. No new or enlarging breast densities are seen. No suspicious microcalcifications are evident. IMPRESSION: Stable mammograms without evidence of malignancy. BI-RADS CATEGORY: 2 BENIGN FINDING(S) RECOMMENDED FOLLOW-UP: 12M 12 MONTH FOLLOW-UP PQRS compliance statement: Patient information was entered into a reminder system with a target due date for the next mammogram. Mammography is a sensitive method for finding small breast cancers, but it does not detect them all and is not a substitute for careful clinical examination. A negative mammogram does not negate a clinically suspicious finding and should not result in delay in biopsying a clinically suspicious abnormality. "Our facility is accredited by the [employer] Mammography [employer]."
== END | disposition home or self-care (01) ==
LOC: MAMMO 08:47
PROVIDERS: ATTEND Internal Medicine
DX: Z12.31 Encounter for screening mammogram for malignant neoplasm of breast (principal)
CPT/HCPCS: 77063; 77067

== ENCOUNTER → 2019-09-26 | Outpatient (CLI) | payer MEDICARE ==
[2016-07-11 12:00] VITALS: BP 134/72
--- NOTE | 2019-09-26 19:05 | KCIC ---
Bilateral digital screening mammograms with 3-D tomosynthesis: Reason for examination: Routine screening. Comparison is made to previous studies dated back to 07/03/2015. Bilateral mammograms in CC and oblique projections were obtained with 2-D imaging and 3-D tomosynthesis imaging on a Siemens Inspiration unit and reviewed on the workstation. Interpretation was made with the benefit of CAD. The skin and nipples show no abnormalities. No abnormal axillary lymph nodes are seen. The breast parenchyma shows scattered fatty and fibroglandular density. (Breast density: Category B.) There continue to be small nodular parenchymal densities laterally in the right breast which are stable. There are no new dominant masses, suspicious calcifications or architectural distortion. Impression: No evidence of malignancy. Recommend routine screening. BI-RAD Category 2: Benign. "Our facility is accredited by the [employer] Mammography Program." This patient's information has been entered into a reminder system for the patient to be notified with the results of her examination and a target date for the next mammogram. Electronically signed by: Sonal Dye MD (09/26/2019 7:02 PM) [id number]
== END | disposition home or self-care (01) ==
LOC: KCIC MAMMO 08:10
PROVIDERS: ATTEND Internal Medicine
DX: Z12.31 Encounter for screening mammogram for malignant neoplasm of breast (principal)
CPT/HCPCS: 77063; 77067

== ENCOUNTER → 2020-09-18 | Outpatient (CLI) | payer MEDICARE ==
[2016-07-11 12:00] VITALS: BP 134/72
--- NOTE | 2020-09-19 14:45 | RAD ---
DATE: 09/18/2020 EXAM: MAMMO AGUILAR SCREENING BILATERAL HISTORY: Screening COMPARISON: 07/03/2015, 07/06/2017, 07/10/2018, 09/26/2019 This study was interpreted with the benefit of Computerized Aided Detection (CAD). Breast Density: SCATTERED The breast parenchyma shows scattered fibroglandular densities. Breast parenchyma level B. FINDINGS: No mass, suspicious calcification, or architectural distortion in either breast. IMPRESSION: No evidence of malignancy. BI-RADS CATEGORY: 1 NEGATIVE RECOMMENDED FOLLOW-UP: 12M 12 MONTH FOLLOW-UP PQRS compliance statement: Patient information was entered into a reminder system with a target due date for the next mammogram. Mammography is a sensitive method for finding small breast cancers, but it does not detect them all and is not a substitute for careful clinical examination. A negative mammogram does not negate a clinically suspicious finding and should not result in delay in biopsying a clinically suspicious abnormality. "Our facility is accredited by the [employer] Mammography Program."
== END ==
LOC: MAMMO 12:31
PROVIDERS: ATTEND Internal Medicine
DX: Z12.31 Encounter for screening mammogram for malignant neoplasm of breast (principal)
CPT/HCPCS: 77063; 77067

== ENCOUNTER → 2021-08-21 | Outpatient (CLI) | payer OTHER ==
[2016-07-11 12:00] VITALS: BP 134/72
--- NOTE | 2021-08-21 12:00 | KCIC ---
Coronary calcium score CT chest without contrast History: Hyperlipidemia Technique: With retrospective electrocardiogram gating axial reconstructed noncontrast images of the chest at the level of the coronary arteries was performed. The upper thorax was not fully included fo r purposes of this exam. Images were post processed on workstation and calcium score calculated using the modified Agatston Janowitz protocol. Findings: Calcium score Left main coronary artery 0 Left anterior descending artery 0 Left circumflex artery 0 Right coronary artery 0 Total coronary calcium score is 0. Total calcium score of 0. No plaque is present. Use of less than 5 percent chance of having heart dis ease. Your risk of a heart attack is very low. Incidental findings: Small precarinal node, nonspecific and likely reactive. The heart is normal in s ize. The visualized portion of the thoracic aorta is normal in caliber. The visualized portion of the lungs are clear. IMPRESSION: 1. Total calcium score of 0. No plaque is present. Use of less than 5 percent chance of having heart disease. Your risk of a heart attack is very low. 2. No significant incidental findings. PQRS Compliance Statement: One or more of the following individualized dose reduction techniques were utilized for this examinat ion: 1. Automated exposure control 2. Adjustment of the mA and/or kV according to patient size 3. Use of iterative reconstruction technique Electronically signed by: Tiffanie Vyas MD (08/21/2021 11:58 AM) [id number]
== END ==
LOC: KCIC CT 08:42
PROVIDERS: ATTEND Nurse Practitioner Family
DX: E78.5 Hyperlipidemia, unspecified (principal)
CPT/HCPCS: 75571